=== PATIENT | male | born 1950 | race Caucasian/White ===

== ENCOUNTER 2018-08-25 19:42 | Emergency (ER) | payer MEDICARE ==
[2018-08-25] MEDS ORDERED: Proparacaine 0.5% Opth 15 ML BOT ONE (19:51)
[2018-08-25] MEDS ORDERED: Fluorescein Opthalmic Strip ONE (19:51)
[2018-08-25] MEDS ORDERED: Erythromycin Base 0.5% Oint 1 GM TUBE ONE (20:31)
== END 2018-08-25 20:27 | disposition home or self-care (01) ==
LOC: SCSER 19:42
DX: H11.32 Conjunctival hemorrhage, left eye (principal); H11.002 Unspecified pterygium of left eye
CPT/HCPCS: 99282